=== PATIENT | female | born 1990 | race Caucasian/White ===

== ENCOUNTER 2018-08-24 08:18 | Inpatient (IN) | payer MEDICAID ==
[2018-08-24] MEDS ORDERED: AMPICILLIN 2 GM/NS (PMX) 100 ML IV (08:30)
[2018-08-24] MEDS ORDERED: BUTORPHANOL 2 MG INJ IV (08:30)
[2018-08-24] MEDS ORDERED: MISOPROSTOL 200 MCG TAB PR ×2 (08:30→09:30)
[2018-08-24] MEDS ORDERED: CARBOPROST 250 MCG INJ IM ×2 (08:30→09:30)
[2018-08-24] MEDS ORDERED: OXYCODONE/ACETAMINOPHEN (5/325) TAB PO (08:30)
[2018-08-24] MEDS ORDERED: LIDOCAINE 1% (MPF) 30 ML INJ INJ (08:30)
[2018-08-24] MEDS ORDERED: METHYLERGONOVINE 0.2 MG INJ IM ×2 (08:30→09:30)
[2018-08-24] MEDS ORDERED: OXYTOCIN 30 UNITS/LR 500 ML IV ×2 (08:30→09:30)
[2018-08-24] MEDS: LACTATED RINGER'S 1,000 ML IV (08:40)
[2018-08-24] MEDS: OXYTOCIN 30 UNITS/LR 500 ML IV ×3 (09:01→13:33)
[2018-08-24 09:02] LABS: ADD MAN DIFF? NO
[2018-08-24 09:06] LABS: BASOPHILS % 0.3 % (0.0-2.0); EOSINOPHILS % 0.4 % (0.0-7.0); HEMATOCRIT 40.6 % (37.0-47.0); HEMOGLOBIN 14.2 g/dl (12.0-16.0); LYMPHOCYTES # 3.7 10^3/ul (0.8-2.9); LYMPHOCYTES % 33.5 % (15.0-51.0); MEAN CORPUSCULAR HEMOGLOBIN 32.6 pg (29.0-33.0); MEAN CORPUSCULAR VOLUME 93.1 fl (82.0-101.0); MEAN PLATELET VOLUME 11.1 fl (7.4-10.4); MONOCYTE # 0.6 10^3/ul (0.3-0.9); MONOCYTES % 5.1 % (0.0-11.0); NEUTROPHIL # 6.6 10^3/ul (1.6-7.5); NEUTROPHILS % 60.3 % (39.0-77.0); PLATELET COUNT 192 10^3/UL (140-415); RED BLOOD COUNT 4.36 10^6/ul (4.20-5.40); RED CELL DISTRIBUTION WIDTH 12.1 % (11.5-14.5)
[2018-08-24 09:06] LABS: WHITE BLOOD COUNT 10.9 10^3/ul (4.8-10.8)
[2018-08-24 09:26] LABS: PARTIAL THROMBOPLASTIN TIME 28.3 Sec (23.0-35.0)
[2018-08-24] MEDS ORDERED: DIBUCAINE 1% 30 GM OINT TOP (09:30)
[2018-08-24] MEDS ORDERED: WITCH HAZEL/GLYCERIN PAD PR (09:30)
[2018-08-24] MEDS ORDERED: ACETAMINOPHEN 325 MG TAB PO ×2 (09:30)
[2018-08-24] MEDS ORDERED: ONDANSETRON 4 MG INJ IV (09:30)
[2018-08-24] MEDS ORDERED: MAGNESIUM HYDROXIDE 30ML CUP PO (09:30)
[2018-08-24 09:46] LABS: PT RATIO 0.9
[2018-08-24] MEDS: IBUPROFEN 600 MG TAB PO ×2 (09:53→13:32)
[2018-08-24 10:00] LABS: INR 0.83; PROTIME 11.5 Sec (11.9-14.9)
[2018-08-24] MEDS ORDERED: AMPICILLIN 1 GM/NS (PMX) 50 ML IV (12:30)
[2018-08-24] MEDS: SENNA/DOCUSATE NA (8.6MG/50MG) TAB PO (12:33)
[2018-08-24] MEDS: BENZOCAINE 20% 56 ML SPRAY TOP (12:34)
[2018-08-24] MEDS: LANOLIN HPA 1 PKT TOP (12:34)
[2018-08-24 12:49] LABS: HEPATITIS B SURFACE ANTIGEN NEGATIVE (NEGATIVE)
[2018-08-24 19:55] LABS: RAPID PLASMA REAGIN NONREACTIVE (NR)
[2018-08-24] MEDS: LACTATED RINGER'S 1,000 ML IV* (23:43)
[2018-08-25] MEDS: IBUPROFEN 600 MG TAB PO ×4 (05:45→23:57)
[2018-08-25 07:54] LABS: ADD MAN DIFF? NO
[2018-08-25 07:56] LABS: BASOPHILS % 0.2 % (0.0-2.0); EOSINOPHILS % 0.4 % (0.0-7.0); HEMATOCRIT 35.7 % (37.0-47.0); HEMOGLOBIN 12.3 g/dl (12.0-16.0); LYMPHOCYTES # 3.4 10^3/ul (0.8-2.9); LYMPHOCYTES % 34.8 % (15.0-51.0); MEAN CORPUSCULAR HEMOGLOBIN 32.5 pg (29.0-33.0); MEAN CORPUSCULAR HGB CONC 34.5 g/dl (32.0-37.0); MEAN CORPUSCULAR VOLUME 94.4 fl (82.0-101.0); MEAN PLATELET VOLUME 11.2 fl (7.4-10.4); MONOCYTE # 0.6 10^3/ul (0.3-0.9); MONOCYTES % 6.4 % (0.0-11.0); NEUTROPHIL # 5.6 10^3/ul (1.6-7.5); NEUTROPHILS % 57.8 % (39.0-77.0); PLATELET COUNT 158 10^3/UL (140-415); RED BLOOD COUNT 3.78 10^6/ul (4.20-5.40); RED CELL DISTRIBUTION WIDTH 12.5 % (11.5-14.5)
[2018-08-25 07:56] LABS: WHITE BLOOD COUNT 9.7 10^3/ul (4.8-10.8)
[2018-08-25] MEDS: SENNA/DOCUSATE NA (8.6MG/50MG) TAB PO (12:11)
[2018-08-26] MEDS: LANOLIN HPA 1 PKT TOP (07:58)
== END 2018-08-26 21:50 | disposition home or self-care (01) | DRG 807 ==
LOC: OBT 08:18 → L-D 08:19 → PP1 10:30
PROVIDERS: Obstetrics & Gynecology
PROC: 10E0XZZ Delivery of Products of Conception, External Approach (ICD-10-PCS; principal; 2018-08-24)
DX: O80 Encounter for full-term uncomplicated delivery (principal); Z37.0 Single live birth; Z3A.40 40 weeks gestation of pregnancy
CPT/HCPCS: 85025; 85610; 85730; 86592; 86850; 86900; 86901; 87340